=== PATIENT | male | born 1985 | race Caucasian/White ===

== ENCOUNTER 2020-09-02 19:23 | Emergency (ER) | payer OTHER ==
[~2020-09-02] VITALS: Ht 182.9 cm; Wt 107.0 kg
[~2020-09-02 19:23] MED LIST: BACTRIM DS1 TAB PO; MOTRIN800 MG PO
[2020-09-02 19:52] VITALS: BP 131/75
[2020-09-02] MEDS ORDERED: DILAUDID8 MG PO (20:22)
[2020-09-02] MEDS ORDERED: CYCLOBENZAPRINE10 MG PO (20:50)
[2020-09-02] MEDS ORDERED: NAPROXEN500 MG PO (20:50)
== END 2020-09-02 20:55 | disposition home or self-care (01) | DRG 552 ==
LOC: ED 19:23
DX: S33.5XXA Sprain of ligaments of lumbar spine, initial encounter (principal); V49.40XA Driver injured in collision with unspecified motor vehicles in traffic accident, initial encounter

== ENCOUNTER 2020-11-11 23:51 | Emergency (ER) | payer OTHER ==
[~2020-11-11 23:51] MED LIST changes: +CYCLOBENZAPRINE10 MG PO; +DILAUDID8 MG PO; +NAPROXEN500 MG PO
--- NOTE | 2020-11-12 00:22 | NUR ---
BREATHING TREATMENT GIVEN.
[2020-11-12 00:45] LABS: HEMATOCRIT 43.8 % (39.0-50.0); HEMOGLOBIN 13.5 g/dl (14.0-18.0); IMMATURE GRANULOCYTES 0.3 % (0.0-5.0); MEAN CORPUSCULAR HGB 26.2 pG CALC (26.0-32.0); MEAN CORPUSCULAR HGB CONC 30.8 g/dL CAL (32.0-36.0); NEUT# 4.27 thou/uL (1.82-7.42); RED BLOOD COUNT 5.15 mill/uL (4.70-6.10); RED CELL DISTRI WIDTH 14.1 % (11.5-15.5)
[2020-11-12 01:18] LABS: ALBUMIN 4.7 g/dL (3.2-5.0); ALKALINE PHOSPHATASE 70 u/l (38-126); ANION GAP 16 (6-22 (CALC)); BILIRUBIN, TOTAL 0.6 mg/dL (0.0-1.4); BUN 17 mg/dL (9-20); BUN/CREATININE RATIO 15 (12-20 (CALC)); CARBON DIOXIDE 30 mmol/l (22-30); CHLORIDE 101 mmol/l (95-108); CREATININE 1.1 mg/dL (0.7-1.3); GFR > 60 ML/MIN (>=60 (CALC)); GFR FOR AFR.AMER. > 60 ML/MIN (>=60 (CALC)); POTASSIUM 4.2 mmol/l (3.5-5.1); SGOT/AST 26 u/l (17-59); SODIUM 142 mmol/l (137-146); TOTAL PROTEIN 9.4 g/dL (6.3-8.2)
[2020-11-12 01:30] LABS: MYOGLOBIN 75 ng/mL (0 - 121)
[2020-11-12 03:19] LABS: URINE BILIRUBIN - DIPSTICK NEGATIVE (NEGATIVE); URINE BLOOD DIPSTICK NEGATIVE (NEGATIVE); URINE COLOR YELLOW; URINE GLUCOSE - DIPSTICK NEGATIVE (NEGATIVE); URINE KETONE 15 mg/dL (NEGATIVE); URINE LEUK ESTERASE NEGATIVE (NEGATIVE); URINE PH 6.5 (4.5-8.0); URINE PROTEIN - DIPSTICK 30 mg/dL (NEG-TRACE); URINE SPECIFIC GRAVITY >=1.030; URINE UROBILINOGEN - DIPSTICK 0.2 E.U./dL (0.2)
[2020-11-12 03:23] LABS: URINE NITRITE - DIPSTICK NEGATIVE (Negative)
[2020-11-12 03:46] LABS: URINE SQUAMOUS EPITHELIAL CELL FEW EPI/hpf (0-FEW)
[2020-11-12] MEDS ORDERED: KEFLEX500 MG PO (05:16)
[2020-11-12 07:11] VITALS: BP 112/68
== END 2020-11-12 07:11 | disposition home or self-care (01) | DRG 897 ==
LOC: ED 23:51
PROVIDERS: Emergency Medicine
DX: F19.10 Other psychoactive substance abuse, uncomplicated (principal); N39.0 Urinary tract infection, site not specified; M54.9 Dorsalgia, unspecified; G89.29 Other chronic pain; Z20.822 Contact with and (suspected) exposure to COVID-19

== ENCOUNTER 2021-01-13 19:35 | Emergency (ER) | payer MEDICAID ==
[~2021-01-13] VITALS: Ht 182.9 cm; Wt 97.7 kg
[~2021-01-13 19:35] MED LIST changes: +KEFLEX500 MG PO
[2021-01-13 20:18] LABS: HEMATOCRIT 37.9 % (39.0-50.0); HEMOGLOBIN 11.8 g/dl (14.0-18.0); IMMATURE GRANULOCYTES 0.3 % (0.0-5.0); MEAN CELL VOLUME 84.4 fL CALC (80.0-100.0); MEAN CORPUSCULAR HGB 26.3 pG CALC (26.0-32.0); MEAN CORPUSCULAR HGB CONC 31.1 g/dL CAL (32.0-36.0); NEUT# 4.77 thou/uL (1.82-7.42); RED BLOOD COUNT 4.49 mill/uL (4.70-6.10); RED CELL DISTRI WIDTH 14.4 % (11.5-15.5)
[2021-01-13 20:20] LABS: URINE BILIRUBIN - DIPSTICK NEGATIVE (NEGATIVE); URINE BLOOD DIPSTICK NEGATIVE (NEGATIVE); URINE COLOR YELLOW; URINE GLUCOSE - DIPSTICK NEGATIVE (NEGATIVE); URINE KETONE NEGATIVE (NEGATIVE); URINE LEUK ESTERASE NEGATIVE (NEGATIVE); URINE PH 5.5 (4.5-8.0); URINE PROTEIN - DIPSTICK NEGATIVE (NEG-TRACE); URINE SPECIFIC GRAVITY >=1.030; URINE UROBILINOGEN - DIPSTICK 0.2 E.U./dL (0.2)
[2021-01-13 20:23] LABS: URINE NITRITE - DIPSTICK NEGATIVE (Negative)
[2021-01-13 20:33] LABS: ALBUMIN 4.2 g/dL (3.2-5.0); ALKALINE PHOSPHATASE 70 u/l (38-126); BUN 14 mg/dL (9-20); BUN/CREATININE RATIO 17 (12-20 (CALC)); CARBON DIOXIDE 32 mmol/l (22-30); CHLORIDE 94 mmol/l (95-108); CREATININE 0.9 mg/dL (0.7-1.3); GFR > 60 ML/MIN (>=60 (CALC)); GFR FOR AFR.AMER. > 60 ML/MIN (>=60 (CALC)); POTASSIUM 4.6 mmol/l (3.5-5.1); SGOT/AST 28 u/l (17-59); TOTAL PROTEIN 8.7 g/dL (6.3-8.2)
[2021-01-13 20:34] LABS: ANION GAP 13 (6-22 (CALC)); BILIRUBIN, TOTAL 0.2 mg/dL (0.0-1.4); SODIUM 134 mmol/l (137-146)
[2021-01-13] MEDS ORDERED: GENTAMICIN SULF5 ML OU (22:49)
[2021-01-13] MEDS ORDERED: ERYTHROMYCIN O3.5 GM OU (22:49)
[2021-01-13] MEDS ORDERED: CEPHALEXIN500 MG PO (22:49)
[2021-01-13 23:01] VITALS: BP 112/72
== END 2021-01-13 23:25 | disposition home or self-care (01) ==
LOC: ED 19:35
PROVIDERS: Emergency Medicine
DX: H10.9 Unspecified conjunctivitis (principal); F19.10 Other psychoactive substance abuse, uncomplicated; I88.9 Nonspecific lymphadenitis, unspecified